=== PATIENT | male | born 1990 | race Caucasian/White ===

== ENCOUNTER 2023-09-29 04:24 | Emergency (ER) | payer OTHER ==
[~2023-09-29] VITALS: Ht 170.2 cm; Wt 93.0 kg
[2023-09-29 04:25] VITALS: BP 130/109; PULSE 76; RESP 16; TEMP 97.9; O2SAT 98
[2023-09-29] MEDS ORDERED: CEPH-588 PO (04:58)
[2023-09-29] MEDS ORDERED: NAPR-54 PO (04:58)
[2023-09-29 05:00] VITALS: BP 130/109; PULSE 76; RESP 16; TEMP 97.9; O2SAT 98
== END 2023-09-29 05:00 | disposition home or self-care (01) ==
LOC: MED 04:24
DX: L03.012 Cellulitis of left finger (principal); I10 Essential (primary) hypertension; Z79.899 Other long term (current) drug therapy
CPT/HCPCS: 99282; 99283